=== PATIENT | male | born 1990 | race Caucasian/White ===

== ENCOUNTER → 2017-04-16 10:36 | Outpatient (CLI) | payer OTHER, SELFPAY ==
--- NOTE | 2017-04-16 09:30 | LES_PTH ---
PATIENT: VANESSA GEORGE II LOC: [facility] U#:[id number] AGE/SX: 34/M ROOM: RE04/16/[address]: Dr. Jose Cheek DO : 1990 BED: DIS: SPEC #: [id number] RECD: 04/16/17 11:52 STATUS: MEETA CARISA #: [id number] KIESHA: 04/16/17 09:[address]: Jose Cheek DEPT: SURGICAL PATHOLOGY RECD BY: Sirisha Kulkarni Tissues: Skin of abdomen, NOS Procedures: Special Stain Group I Surgery Specimen Level IV GMS Stain (control) HEADER OPERATION: Punch biopsy PRE-OP DIAGNOSIS: Persistent rash lower stomach; eczema vs psoriasis TISSUE SUBMITTED: 3 mm punch MICROSCOPIC DIAGNOSIS Skin of abdomen, punch biopsy: Benign keratosis, inflamed. Hyperkeratosis and parakeratosis. No evidence of malignancy. AM:fifi 04/17/17 COMMENT Sections show acanthosis, parakeratosis and hyperkeratosis. The superficial dermis contains polymorphous lymphocytic infiltrate, some of which surrounds blood vessels. Only rare eosinophils are seen and no significant plasma cell population is identified. GMS stain with matched control does not reveal fungal organisms. There is no evidence of malignancy. Clinical correlation is suggested. MICROSCOPIC DESCRIPTION Slides are reviewed. GROSS DESCRIPTION Received is one container labeled with the patient's name and not further designated. The specimen consists of one core of schofield-pink soft tissue that measures 0.5 x 0.2 x 0.2 cm. The specimen is totally submitted in one cassette. / RY:fifi 04/16/17 TC:3 CPT: 91140, 10076
== END ==
PROVIDERS: Family Provider Family Medicine; PCP Family Medicine; Visit Provider Family Medicine
DX: R21 Rash and other nonspecific skin eruption (principal); L57.0 Actinic keratosis
CPT/HCPCS: 88305; 88312

== ENCOUNTER → 2018-06-09 09:08 | Outpatient (CLI) | payer OTHER, SELFPAY ==
[2018-06-09 09:15] LABS: Red Blood Cells-Urine 0 SEEN /hpf (0-5); Squamous Epithelial Cells - UA 0 SEEN /hpf (0-5); White Blood Cells 0 SEEN /hpf (0-5)
[2018-06-09 12:13] LABS: Color, Urine Yellow (Yellow); Glucose, Dipstick Normal (Normal); Ketone-Dipstick Negative (Negative); Leukocyte Esterase-Dipstick Negative /ul (Negative); Nitrite-Dipstick Negative (Negative); Occult Blood-Urine Negative /ul (Negative); Protein-Dipstick Negative (Negative); Specific Gravity, Urine 1.015 (1.002-1.030); Urine Bilirubin Dipstick Negative (Negative); Urine Clarity Clear (Clear); Urine Urobilinogen Normal (Normal)
[2018-06-09 12:18] LABS: Bacteria 1+ /hpf (None Seen); Mucous, Urine RARE /hpf (<or=2+)
[2018-06-09 12:50] LABS: ALB/GLOB Ratio 1.3 RATIO (0.9-2.4); AST(SGOT) 31 U/L (15-37); Alanine Aminotransfer ALT/SGPT 46 U/L (16-61); Alkaline Phosphatase 71 U/L (45-117); Anion Gap 5 (5-15); BUN 9 mg/dL (7-18); BUN/Creat Ratio 9.4 RATIO (10-20); Calcium,Total 8.8 mg/dL (8.5-10.1); Chloride 103 mmol/L (98-107); Cholesterol 170 mg/dL (200); Creatinine, Serum 0.96 mg/dL (0.70-1.30); EST Glomerular Filtration Rate 98 mL/min (>60); Est Glom Filt Rate - Afr Amer 119 mL/min (>60); Glucose 95 mg/dL (74-106); High Density Lipoprotein 48 mg/dL; Potassium 4.1 mmol/L (3.5-5.1); Sodium Level 138 mmol/L (136-145); Triglycerides 178 mg/dL; Very Low Density Lipoprotein 36 mg/dL (5-40)
== END ==
PROVIDERS: Family Provider Family Medicine; PCP Family Medicine; Visit Provider Family Medicine
DX: Z00.01 Encounter for general adult medical examination with abnormal findings (principal); R30.0 Dysuria; Z12.5 Encounter for screening for malignant neoplasm of prostate; R03.0 Elevated blood-pressure reading, without diagnosis of hypertension; Z80.42 Family history of malignant neoplasm of prostate
CPT/HCPCS: 36415; 80053; 80061; 81001; 84153; G0103

== ENCOUNTER → 2019-07-27 09:53 | Outpatient (CLI) | payer OTHER, SELFPAY ==
--- NOTE | 2019-07-27 09:59 | RAD_ITS ---
STUDY: X-RAY - LEFT HAND REASON FOR EXAM: Male, 29 years old. Left hand pain 3rd/4th area x 1-2 weeks -- no injury TECHNIQUE: 3 view(s) of the hand. COMPARISON: None. FINDINGS: Normal radiocarpal articulation. Normal distal radioulnar joint. Normal visualized carpal bones. Normal carpal articulations Normal carpometacarpal articulation of the thumb. Normal second through fifth carpometacarpal joints. Normal metacarpi. Normal metacarpophalangeal joint of the thumb. Normal interphalangeal joint of the thumb. Normal proximal and distal phalanges of the thumb. Normal metacarpophalangeal joints of the second through fifth fingers. Normal proximal and distal interphalangeal joints of the second through fifth fingers. Normal phalanges of the second through fifth fingers. The soft tissue structures are unremarkable. RAD/Hand Min 3 Views IMPRESSION: Normal x-ray examination of the hand. Electronically Signed: Luis Platt, at 15:36 EDT , Service support ,
== END ==
PROVIDERS: PCP Family Medicine; Referring Provider Family Medicine; Visit Provider Family Medicine
DX: M79.642 Pain in left hand (principal)
CPT/HCPCS: 73130

== ENCOUNTER 2020-10-26 21:45 | Emergency (ER) | payer OTHER, SELFPAY ==
[2020-10-26 21:46] VITALS: BP 163/103; PULSE 89; RESP 16; TEMP 36.6; O2SAT 100; BMI 35.5
--- NOTE | 2020-10-26 22:33 | EX.ED.VIS.UR ---
HPI HPI - URI History of Present Illness Chief Complaint: Sore Throat Informant: patient Onset/Context/Timing Onset: Yesterday Context: Gradual Onset Timing: Continuous Quality: sore Location: throat Current Severity: Moderate Maximum Severity: Moderate Worsened by: Swallowing Relieved by: - (no treatment except took a leftover Bactrim today) Associated Symptoms Associated Symptoms: Positive for Nasal Congestion, Headache, Myalgias, Nausea, Diarrhea and Nonproductive cough; Negative for Sinus Pressure, Vomiting, Shortness of Breath, Hemoptysis and Productive Cough Narrative Narrative: Patient presenting with sore throat, subjective fevers and chills, body aches, cough, some diarrhea, and some mild nausea and upper abdominal discomfort that started yesterday. 3 or 4 days prior to that he was in close contact with a woman that he knows well, eating dinner with her at the same table, who had a fever the next day and has a positive for Covid and needed to be hospitalized. Patient was not vaccinated and is concerned he has Covid as a result of this, presents asking for testing. Denies dyspnea. Denies leg swelling. Denies any vomiting. No focal neurologic symptoms. No neck stiffness. ROS ROS ED Constitutional Constitutional ED: Reports body ache(s), chills, fatigue, fever(s), headache(s) and malaise Eyes Eyes: Denies change in vision or diplopia ENT ENT ED: Denies loss taste/smell, rhinorrhea or sore throat Cardiovascular Cardiovascular: Denies chest pain or palpitations Respiratory/Chest Respiratory/Chest: Reports cough; Denies chest congestion, chest tightness, dyspnea or dyspnea on exertion Gastrointestinal Gastrointestinal: Reports as per HPI, abdominal pain, diarrhea and nausea; Denies vomiting Genitourinary Genitourinary ED: Denies dysuria or hematuria Musculoskeletal Musculoskeletal: Denies back pain or neck pain Integumentary Denies abscess or rash Neurologic Neurologic: Reports headache(s); Denies paresthesias or weakness Psychiatric Psychiatric: Denies anxiety or suicidal thoughts PFSH PFSH no medical history Home Medications dextroamphetamine-amphetamine [Adderall 20 mg Tablet] 40 mg PO BID 07/06/13 [History Last Taken Unknown] Allergy/AdvReac Type Severity Reaction Status Date / Time No Known Allergies Allergy Verified 10/26/20 21:48 no surgical history Social History Smoking Status: Never smoker EXAM Physical Exam Const Vital Signs: 10/26/20 21:46 Temperature 97.8 F Temperature Source Temporal Pulse Rate 89 Respiratory Rate 16 Blood Pressure 163/103 H Blood Pressure Mean 123 Pulse Ox 100 Oxygen Delivery Method Room Air Positive well nourished and well developed Constitutional Narrative: Well-appearing, no distress General Appearance ED: well developed and NAD HEENT Reports moist mucous membranes normocephalic and atraumatic Eyes PERRL and EOMs intact bilaterally Neck full ROM and supple Resp normal respiratory effort and clear to auscultation bilaterally Cardio regular rate, regular rhythm and no murmurs Rate: Negative for tachycardic GI non-tender and non-distended Auscultation: normoactive bowel sounds Palpation: soft Back/Spine no CVA tenderness General Back: other FROM Extremity normal to inspection and no calf tenderness General Extremety ED: Negative for edema, pulses abnormal or tenderness General Extremity: Negative for edema or pulses abnormal Neuro oriented x3, CN's II-XII intact bilaterally and no sensory deficits noted Sensorium / Orientation: awake and alert Motor Exam: strength 5/5 throughout Skin no rashes or lesions noted and no wounds MDM MDM MDM Narrative Medical decision making narrative: Rapid Covid was performed and is negative. Patient wants to know if he can return to work or not, so a send out PCR was sent, he was written off of work for the next couple days. Pulse ox is 100%, he is clinically hemodynamically stable but all of his symptoms are consistent with Covid especially with his contact with a Covid patient lately, I recommend isolating for now Discharge Plan Triage Chief Complaint: Sore Throat ED Provider: Kavin Larson Dx/Rx/DC Orders Clinical Impression: Viral URI with cough Instructions: Coronavirus Disease 2019 (COVID-19): Caring for Yourself or Others Prescriptions: No Action dextroamphetamine-amphetamine [Adderall] 20 MG tablet 40 mg PO BID RF: 0 Stand Alone Forms: ED Work / School Excuse Primary Care Provider: Jose Cheek Referrals: Jose Cheek, [Primary Care Provider] - As Needed Disposition Disposition: Home, Self Care
[2020-10-27 00:06] VITALS: BP 154/60; PULSE 87; RESP 18; O2SAT 96
[2020-10-27 15:14] LABS: Probe Check PASS; Specimen Processing Control PASS
== END 2020-10-27 00:07 | disposition home or self-care (01) ==
LOC: ED 23:55
PROVIDERS: Emergency Provider Emergency Medicine; PCP Family Medicine
DX: J06.9 Acute upper respiratory infection, unspecified (principal); Z79.899 Other long term (current) drug therapy
CPT/HCPCS: 87426; 87635; 99282; U0005; U0003

== ENCOUNTER 2020-11-03 07:23 | Emergency (ER) | payer OTHER, SELFPAY ==
[2020-11-03 07:24] VITALS: BP 134/71; PULSE 106; RESP 18; TEMP 36.6; O2SAT 97; BMI 32.3
[2020-11-03 07:28] VITALS: BP 134/71; PULSE 106; RESP 18; TEMP 36.6; O2SAT 97
--- NOTE | 2020-11-03 07:44 | EX.ED.DYSGE1 ---
HPI History of Present Illness Chief Complaint: Weakness Narrative Narrative: Patient is a 30-year-old male who states he was diagnosed with Covid approximately 7 days ago. He states he recently finished Decadron and now has noticed increased congestion muscle aches and cough. He states since his symptoms have worsened he is concerned about the infection and secondary to this presents for evaluation [facility] Medical History (Updated 11/03/20 @ 09:[address] Roel Landers, DO) ADD (attention deficit disorder) Home Medications dextroamphetamine-amphetamine [Adderall 20 mg Tablet] 40 mg PO BID 07/06/13 [History Last Taken Unknown] promethazine-codeine 5 ml PO Q6H PRN #140 ml 11/03/20 [Rx Last Taken Unknown] Allergy/AdvReac Type Severity Reaction Status Date / Time No Known Allergies Allergy Verified 11/03/20 07:26 Social History Smoking Status: Never smoker [facility] ED Constitutional Constitutional ED: Denies chills or fever(s) ENT ENT ED: Reports rhinorrhea and sore throat Cardiovascular Cardiovascular: Denies chest pain Respiratory/Chest Respiratory/Chest: Reports cough and dyspnea Gastrointestinal Gastrointestinal: Reports diarrhea and nausea; Denies abdominal pain or vomiting Genitourinary Genitourinary ED: Denies dysuria Musculoskeletal Musculoskeletal: Reports myalgias Integumentary Denies rash Neurologic Neurologic: Reports weakness; Denies headache(s) Hematologic/Lymphatic Hematologic/Lymphatic: Denies easy bleeding or easy bruising EXAM Physical Exam Const Vital Signs: 11/03/20 07:24 11/03/20 07:28 Temperature 98 F 98 F Temperature Source Temporal Temporal Pulse Rate 106 H 106 H Respiratory Rate 18 18 Blood Pressure 134/71 H 134/71 H Blood Pressure Mean 92 92 Pulse Ox 97 97 Oxygen Delivery Method Room Air Room Air Positive well nourished and well developed General Appearance ED: well developed HEENT Reports moist mucous membranes HEENT Narrative: Cobblestoning the posterior pharynx consistent with sinus drainage but no airway edema or compromise Eyes PERRL and EOMs intact bilaterally Neck supple Lymph Lymphatic Narrative: Positive anterior cervical lymphadenopathy Resp Resp Narrative: Breath sounds are diminished throughout with faint expiratory wheeze and rhonchi in bilateral bases but no signs of distress Cardio regular rate and regular rhythm GI normal to inspection, nondistended, normoactive bowel sounds, non-tender and non-distended Auscultation: normoactive bowel sounds Palpation: soft Extremity normal to inspection Neuro oriented x3 and CN's II-XII intact bilaterally Sensorium / Orientation: alert Psych mental status grossly normal Skin no rashes or lesions noted MDM MDM MDM Narrative Medical decision making narrative: Patient presented to the ER with stable vitals and no acute respiratory distress. He also is about 7 to 10 days into a known Covid infection. He has no signs of respiratory distress and I do not feel there is need for work-up at this time. As patient reports he has been having some loose stool/diarrhea I did elect to hydrate him with 1 L of normal saline give him albuterol breathing treatment as well as IV Decadron. On reevaluation he is resting comfortably and reports feeling better and therefore he will be safe for discharge with symptomatic medications Discharge Plan Triage Chief Complaint: Weakness ED Provider: Roel Landers Dx/Rx/DC Orders Clinical Impression: COVID-19 Instructions: Coronavirus Disease 2019 (COVID-19): Caring for Yourself or Others Prescriptions: New promethazine-codeine 6.25-10 mg/5 mL syrup 5 ml PO Q6H PRN (Reason: cough) Qty: 140 RF: 0 No Action dextroamphetamine-amphetamine [Adderall] 20 MG tablet 40 mg PO BID RF: 0 Primary Care Provider: Jose Cheek Referrals: Jose Cheek DO [Primary Care Provider] - Disposition Disposition: Home, Self Care
[2020-11-03] MEDS: 0.9% Normal Saline 1,000 ML 999 ML IV (08:13)
[2020-11-03] MEDS: dexAMETHasone 10 MG/ML Vial IV (08:19)
[2020-11-03 10:05] VITALS: BP 139/84; PULSE 71; RESP 16; O2SAT 97
== END 2020-11-03 10:06 | disposition home or self-care (01) ==
PROVIDERS: Emergency Provider Emergency Medicine; PCP Family Medicine
DX: U07.1 COVID-19 (principal); R19.7 Diarrhea, unspecified; F98.8 Other specified behavioral and emotional disorders with onset usually occurring in childhood and adolescence; Z79.899 Other long term (current) drug therapy
CPT/HCPCS: 96361; 96374; 99283; J7030; A4216